=== PATIENT | female | born 1980 | race Caucasian/White ===

== ENCOUNTER 2016-09-07 05:46 | Inpatient (IN) | payer OTHER ==
[2016-09-01 08:18] LABS: BASOPHILS 0.4 %; BASOPHILS ABSOLUTE 0.02 10/3/uL (0.0-0.16); EOSINOPHILS 1.6 %; EOSINOPHILS ABSOLUTE 0.09 10/3/uL (0.0-0.53); HEMATOCRIT 41.1 % (36.0-48.0); HEMOGLOBIN 14.1 g/dL (12.0-16.0); IMMATURE GRANULOCYTES 0.4 %; IMMATURE GRANULOCYTES ABSOLUTE 0.02 10/3/uL (0.0-0.11); LYMPHOCYTES 34.1 %; LYMPHOCYTES ABSOLUTE 1.89 10/3/uL (0.67-4.30); MEAN CORPUS HGB CONC 34.3 g/dL (32.0-36.0); MEAN CORPUSCULAR HEMOGLOB 31.3 pg (26.0-34.0); MEAN PLATELET VOLUME 9.8 fL (9.2-13.0); MONOCYTES 11.2 %; MONOCYTES ABSOLUTE 0.62 10/3/uL (0.21-1.20); NEUTROPHILS 52.3 %; RBC DISTRIBUTION WIDTH 12.9 % (12.0-16.0); WHITE BLOOD CELLS 5.5 10/3/uL (4.5-10.5)
[2016-09-01 08:21] LABS: MANUAL DIFF NO %; MEAN CORPUSCULAR VOLUME 91.3 fL (80-100); PLATELET COUNT 329 10/3/uL (150-400)
[2016-09-01 08:30] LABS: PROTIME (NOT ORD) 13.3 SEC (12.0-14.5)
[2016-09-01 08:35] LABS: PARTIAL THROMBO TIME 28.9 SEC (22.5-37.2)
[2016-09-01 09:15] LABS: A/G RATIO 0.9 (0.7-1.9); ALBUMIN 3.6 G/DL (3.5-5.0); ALKALINE PHOSPHATASE 63 U/L (45-117); BUN (BLOOD UREA NITROGEN) 12 MG/DL (6-23); CALCIUM, SERUM 9.6 MG/DL (8.5-10.4); CHLORIDE, SERUM 108 MMOL/L (96-112); CHOL/HDL RATIO(NOT ORDER) 3.6 (0-5); CHOLESTEROL 166 MG/DL (< 200); CO2 (CARBON DIOXIDE) 21 MMOL/L (24-34); CREATININE 0.93 MG/DL (0.55-1.02); GFR AFRICAN AMERICAN 94 ML/MIN (>=60); GFR NON AFRICAN AMERICAN 81 ML/MIN (>=60); GLOBULIN 4.1 G/DL (2.5-4.1); GLUCOSE, SERUM 92 MG/DL (60-99); HDL CHOLESTEROL 46 MG/DL (> 49); IRON, SERUM 62 MCG/DL (35-150); LDL CHOLESTEROL 88 MG/DL (< 130); NON-HDL CHOLESTEROL 120 MG/DL (< 160); POTASSIUM, SERUM 4.1 MMOL/L (3.5-5.3); SGOT(AST) 40 U/L (5-40); SGPT(ALT) 88 U/L (5-65); SODIUM, SERUM 142 MMOL/L (135-148); TOTAL BILIRUBIN 0.3 MG/DL (0-1.2); TOTAL PROTEIN 7.7 G/DL (6.0-8.5); TRIGLYCERIDE 161 MG/DL (< 150)
[2016-09-01 09:16] LABS: FOLATE 66.4 NG/ML (>5.2)
[2016-09-01 09:43] LABS: ASCORBIC ACID (UR NOT ORDER) 20 (NEG); BILIRUBIN, URINE NEGATIVE (NEG); KETONE, URINE 20 MG/DL (NEG); LEUKOCYTE ESTERASE(NOT OR MOD (NEG); WBC (NOT ORDERED) (RFLEX) 21 (0-5)
--- NOTE | ~2016-09-07 | OP ---
Record Of Operation [facility] [address] [place]. [address] NAME: GABRIELA NEGRON : 84 STATUS : ADM IN PAT#: [id number] AGE: 35 ADM/REG DATE : 09/07/16 MR#: [id number] REPORT SERV DATE: 09/07/16 DICTATED BY: LOYDA LOWE DATE: 09/07/16 REPORT STATUS : Draft TRANSCRIBED BY: ANA LUISA DATE: 09/07/16 DATE OF PROCEDURE: 09/07/2016 PREOPERATIVE DIAGNOSIS: Morbid obesity. POSTOPERATIVE DIAGNOSIS: Morbid obesity. OPERATION: Laparoscopic gastric bypass Maxime-en-Y. ANESTHESIA: General endotracheal. COMPLICATIONS: None. INDICATION FOR PROCEDURE: This is a 35-year-old white female with morbid obesity with a BMI of 40 and a weight of 259 pounds and associated arthropathy. DESCRIPTION OF OPERATION: The patient was taken to the operating room, and after adequate general endotracheal anesthesia, she was prepped and draped in a sterile manner. We put a total of six trocars in the upper abdomen. First, while the patient was in supine, we lifted up the omentum and then identified the transverse colon, identified the ligament of Treitz and started counting from the ligament of Treitz a 60 cm of small bowel. At that point, we transected the small bowel with an Lookout automatic stapler with a white load and used Harmonic scalpel to transect a little bit more the mesentery of the bowel. Then from that point, we measured 100 cm on the bowel and then did align two segments of bowel with a Vicryl 2-0 suture and then did a lateral anastomosis with an Lookout white load stapler. We then closed the defect enterotomy with a Vicryl #2-0 in a running manner and then did a second layer to oversew in a Lembert fashion the defect with a Vicryl 2-0 as well. We did a Brolin stitch to make sure there was no kink in between the bowel proximal and distal and we also put a stitch in the crotch of the staple line at the distal. All these were done with Vicryl 2-0 suture, and then we closed the mesenteric defect with an Ethibond 2-0 in a running manner. After all that was aligned and looked viable and patent, we transected the greater omentum at the middle of the transverse colon with the Harmonic scalpel and then got the Maxime limb all the way up to the upper abdomen to make sure that it was maneuvering to reach well. It seems like it was reaching well. There was no significant tension. Then, we put the patient in reverse Trendelenburg. We put the liver retractor and identified the upper stomach anatomy. We did remove some of the epiphrenic fat pad on top of the stomach using the Harmonic scalpel and then we dissected the angle of His with a blunt dissector as well as the Harmonic scalpel. After we did that, then we measured 6 cm from the EG junction and then made a small window in the lesser curvature with the Harmonic scalpel and started dissecting with Harmonic scalpel and bluntly behind the stomach and then we fired an Lookout automatic stapler with a blue load in a transverse fashion and then we put the 36-Ivorian bougie all the way down and then we started dissecting along that in a vertical fashion all the way up to the angle of His. We used blunt dissection as well as the articulating blunt dissector under direct visualization until we find a dissection and then we started stapling. We used a total of 3 staplings from blue loads. The vertical stapling was done with Seamguard and blue loads as well. I then proceeded to look at our pouch and then Record Of Operation [address] [place]. [address] NAME: GABRIELA NEGRON : 84 STATUS : ADM IN [facility] [id number] AGE: 35 ADM/REG DATE : 09/07/16 MR#: [id number] REPORT SERV DATE: 09/07/16 DICTATED BY: LOYDA LOWE DATE: 09/07/16 REPORT STATUS : Draft TRANSCRIBED BY: [email or web address] DATE: 09/07/16 grabbed the Maxime limb and then started suturing. I did a hand-sewn anastomosis end-to-side from the stomach pouch into the Maxime limb, so we did a posterior layer with Vicryl to the staple line and then we did enterotomies both in the stomach and the small bowel and then sutured the posterior layer as well in a running fashion with Vicryl and then the anterior layer with Vicryl in a running fashion and then oversew the top with a Vicryl 2-0 as well in a Lambert fashion in a running fashion. We did put the 36-Ivorian bougie to pass through the anastomosis to make sure that it was patent and there was no stenosis after we sutured all that. Then, we proceeded to remove the bougie and then put a scope and underwater we insufflate some air while we were clamping the Maxime limb and verified there was no evidence of bubbling or leakage and then proceeded to take the clamp out of the bowel, suck all the air out, and then we closed the mesenteric defect at the Combs's defect with an Ethibond 2-0 suture in a running fashion. Then everything looked intact and fine, so we proceeded to remove all the trocars under direct visualization and then closed all the incisions with subcuticular Monocryl 4-0. The patient tolerated the procedure well. Did not have any problems. MARLEY Loyda Sethi M.D. / [id number] CC: Loyda Lowe M.D.
[~2016-09-07 05:46] MED LIST: LO LOESTRIN PO; MULTIPLE VIT PO
[2016-09-08] MEDS ORDERED: ZOFRAN ODT4 MG PO (10:20)
[2016-09-08] MEDS ORDERED: SUCR PO (10:38)
== END 2016-09-08 11:16 | disposition home or self-care (01) | DRG 621 ==
LOC: SDC/OF 05:46 → PACU 12:20 → 2SO 13:27
PROVIDERS: Surgery
PROC: 0D164ZA Bypass Stomach to Jejunum, Percutaneous Endoscopic Approach (ICD-10-PCS; principal; 2016-09-07 07:45)
DX: E66.01 Morbid (severe) obesity due to excess calories (principal); F17.210 Nicotine dependence, cigarettes, uncomplicated; Z68.41 Body mass index [BMI] 40.0-44.9, adult; M12.9 Arthropathy, unspecified
CPT/HCPCS: 74246; 80053; 80061; 81001; 82607; 82746; 83036; 83540; 84443; 84703; 85025; 85610; 85730; 87086; 93005; A9270-GY; C9113; J0690; J2250; J2405; J2710; J2795; J3010